=== PATIENT | male | born 1995 | race Hispanic/Latino ===

== ENCOUNTER 2022-10-29 07:08 | Emergency (ER) | payer OTHER ==
[~2022-10-29] VITALS: Ht 167.6 cm; Wt 77.1 kg
[2022-10-29 07:12] VITALS: BP 117/60; PULSE 93; RESP 16; O2SAT 100
[2022-10-29] MEDS: CLINDAMYCIN 150 MG CAP PO ONE (08:11)
[2022-10-29] MEDS: DEXAMETHASONE SOD PHOSPHATE 4 MG/ML 1ML VIAL IM ONE (08:12)
[2022-10-29] MEDS: KETOROLAC 60 MG VIAL (30MG/ML) IM ONE (08:13)
[2022-10-29] MEDS ORDERED: CLIN-26 PO (09:55)
== END 2022-10-29 10:00 | disposition home or self-care (01) ==
LOC: EDH 07:08
DX: J03.90 Acute tonsillitis, unspecified (principal); Z79.52 Long term (current) use of systemic steroids
CPT/HCPCS: 99284; 87880; 96372 ×2; J1100; J1885